=== PATIENT | male | born 1990 | race Caucasian/White ===

== ENCOUNTER 2016-09-05 12:50 | Emergency (ER) | payer SELFPAY ==
[2016-09-05 13:55] VITALS: BP 147/67; PULSE 58; TEMP 98; BMI 30.1
--- NOTE | 2016-09-05 14:13 | EDPRACDOC ---
- General Information Chief Complaint: Skin Rash (not drug induced) Stated Complaint: RASH Time Seen by Provider: 09/05/16 14:12 Information Source: Patient Mode Of Arrival: Car Home Medications: Home Medications No Home Medications 09/05/16 Allergies/Adverse Reactions: Allergies Allergy/AdvReac Type Severity Reaction Status Date / Time ketorolac tromethamine Allergy Rash-Genera Verified 09/05/16 13:53 [From Toradol] lized - History of Present Illness Onset: last night HPI: PT PRESENTS TODAY WITH RASH TO BACK OF NECK AND VOLAR ASPECT OF LEFT FOREARM. STATES HE STAYED AT A FRIENDS HOUSE LAST NIGHT AND WOKE UP WITH ITCHY RASH. NO FEVER/PAIN. Rash Location: Reports: Arms, Neck Quality: Reports: Pruritic, Red Relevant History of: Reports: None Irritability: Mild Pain Severity: None Associated Signs and Symptoms: Reports: None ED Past Medical History - History Reviewed Yes Nurses notes reviewed and agree except as marked - Patient Medical History Respiratory History: Reports: Asthma Psychological History: Reports: Anxiety, Substance Use Disorder (THC, Benzo, ETOH, Opiate). Denies: Depression Surgical History: Reports: Other (Hernia Surgery) - Social Medical History Smoking Status: Never smoker Social History: Reports: Substance Use Disorder (THC, Benzo, ETOH, Opiate) EDM Review of Systems - Review of Systems ROS Negative Except as Marked: Yes All systems reviewed and were negative except as marked Constitutional: No Symptoms Reported Ears: No Symptoms Reported Throat: No Symptoms Reported Nose: No Symptoms Reported Respiratory: No Symptoms Reported Cardiovascular: No Symptoms Reported Gastrointestinal: No Symptoms Reported Neurological: No Symptoms Reported Musculoskeletal: No Symptoms Reported Integumentary: Itching, Rash - Physical Exam Constitutional: Alert (Awake), No apparent distress Oriented to: Time, Person, Place Last recorded Vital Signs: Last Vital Signs Temp 98.0 F 09/05/16 13:53 Pulse 58 L 09/05/16 13:53 Resp 18 09/05/16 13:53 BP 147/67 09/05/16 13:53 Pulse Ox 98 09/05/16 13:53 Oxygen Pulse Oxygen Saturation 98 O2 Device Room Air Oxygen Flow Rate Fraction of Inspired Oxygen ( FIO2) - HEENT Head: Normal Eye Exam: Normal Oropharynx: Normal Neck: Other (NOTED RED, RAISED WELPS TO BACK OF NECK CONSISTENT WITH BED BUGS; NO SECONDARY INFECTION NOTED) - Respiratory/Cardiovascular Respiratory: Normal - CTA Cardiovascular: Normal - GI Palpation: Normal Tenderness: Non tender - Musculoskeletal Back: Normal Extremities: Other (NOTED 3 BITES THAT ARE CONSISTENT WITH BED BUGS TO LEFT VOLAR FOREARM W/OUT SECONDARY INFECTION) - Integumentary Skin: Normal Lymphatics: Normal - Neurologic Cranial Nerve: Normal Cerebellar: Normal Mood Description: Normal Thought: Coherent Perception: Normal Decision Time to Discharge: 14:12 - Departure Disposition: Home Condition: Good Final Diagnosis: Bed bug bite Qualifiers: Encounter type: initial encounter Qualified Code(s): W57.XXXA - Bitten or stung by nonvenomous insect and other nonvenomous arthropods, initial encounter Instructions: Bed Bugs (ED) Education/Counseling Given To: Patient, Family Member Education/Counseling Given Regarding: Diagnosis, Treatment, Follow Up Referrals: Doreen Guido NP [Primary Care Provider] - One Week Additional Instructions: BENADRYL CREAM FOR ADDITIONAL RELIEF OF ITCHING. WASH ALL CLOTHING.
== END 2016-09-05 14:20 | disposition home or self-care (01) ==
LOC: EDMC 12:50
DX: S50.862A Insect bite (nonvenomous) of left forearm, initial encounter (principal); W57.XXXA Bitten or stung by nonvenomous insect and other nonvenomous arthropods, initial encounter
CPT/HCPCS: 99282